=== PATIENT | female | born 1965 | race Caucasian/White ===

== ENCOUNTER → 2017-03-11 | Outpatient (CLI) | payer BC ==
[~2017-03-11] MED LIST: CATHETER FLUSH 10 ML SYR IV PRN; IOHEXOL 350 MG/ML 150 ML (OMNIPAQUE 350) VIAL IV ONE
--- NOTE | 2017-03-11 16:48 | Diagnostic Imaging Report ---
INDICATION: Bilateral leg pain and swelling. COMPARISON: None. TECHNIQUE: The bilateral lower extremity deep venous system was interrogated from the common femoral vein through the popliteal vein. These images were assessed for grayscale appearance, color and spectral Doppler blood flow, compression, and augmentation. FINDINGS: There is no evidence of intraluminal filling defect. Normal compression and augmentation is noted throughout. Soft tissues are unremarkable. IMPRESSION: 1. No sonographic evidence of deep venous thrombosis in the bilateral lower extremities. Dictated by: Dictated on workstation # [id number]
--- NOTE | 2017-03-11 17:58 | Diagnostic Imaging Report ---
PROCEDURE: CT angiography of the chest with contrast. TECHNIQUE: Multiple contiguous axial images were obtained through the chest after uneventful bolus administration of intravenous contrast. Reconstructed CTA MIP acquisitions were also performed. INDICATION: Shortness of air. CORRELATION STUDY: None. FINDINGS: There are poststernotomy changes along with surgical changes at the level of the aortic and mitral valve. Heart size enlarged. Thoracic aorta relatively normal in contour. Intraluminal assessment is somewhat limited given phase of contrast bolus. Pulmonary arteries without significant filling defect to suggest pulmonary embolism. Central pulmonary arteries, however, are dilated, can be associated with pulmonary arterial hypertension. Prominent mediastinal and hilar lymph nodes are present. Largest right precarinal lymph node measures 31 x 17 mm. EG junction unremarkable. Lung daniel are clear of infiltrate. Tiny 2 mm nodule in subpleural region of left upper lobe. No significant effusion. Visualized portions of the upper abdomen with diffuse hepatic steatosis. IMPRESSION: 1. No CTA evidence for pulmonary embolism. The pulmonary arteries are dilated centrally, can be seen with pulmonary arterial hypertension. 2. Postsurgical changes of sternotomy with aortic and mitral valves. Cardiac enlargement. 3. Prominent thoracic lymph nodes. Largest lymph node has a somewhat fatty hilum may be reflective of benign process; however, neoplasm while considered less likely is not excluded. Dictated by: Dictated on workstation # [id number]
--- NOTE | 2017-03-13 07:06 | ECHOCARDIOGRAPHY REPORT ---
DATE OF SERVICE: 03/11/2017 ECHOCARDIOGRAPHY REPORT ORDERING PHYSICIAN: Dr. Kramer. CLINICAL DIAGNOSIS: Shortness of breath, history of mitral valve replacement with [address] Ayhir valve, history of aortic valve replacement with [address] Yahir valve. MEASUREMENTS: 1. Aortic root 2.5. 2. Left atrium 3.1. 3. LV diameter diastolic 5.8. 4. IVS thickness, diastolic 1.2. 5. LVPW thickness, diastolic 1.3. DESCRIPTION: This is a technically difficult study on account of patient's body habitus. There appears to be considerable mitral annular calcification and aortic valve sclerosis. By history, there are two mechanical prosthetic valves, one in the mechanical position other in the aortic position. Both stated to be St. Yahir valve. There is no significant pericardial effusion seen on this study. The valve leaflet structure is not well visualized. Doppler imaging shows mild pulmonic regurgitation and mild to moderate tricuspid regurgitation. There does not appear to be any significant mitral regurgitation or evidence of mitral stenosis. Peak pressure seen across the aortic valve seen on this study is approximately 10 mmHg. Good subcostal views are not available. The study is not adequate for evaluation for intracardiac shunt. Inferior vena cava is not well visualized. Pulmonary artery systolic pressure is estimated at approximately 50 mmHg. CONCLUSIONS: 1. Technically difficult study. 2. Well preserved global left systolic function with ejection fraction approximately 55%. 3. Mild concentric left ventricle hypertrophy. 4. Mechanical prosthetic aortic and mitral valves which appear to be functioning adequately. 5. Pulmonary hypertension with an estimated pulmonary artery systolic pressure of approximately 50 mmHg. 6. Mild pulmonic regurgitation. 7. Mild to moderate tricuspid regurgitation. Job ID: [id number] DocumentID: [id number] Dictated Date: 03/12/2017 14:34:28 Internal Controls Analyst Date: 03/12/2017 15:24:37 Dictated By: MARYLU KRAMER MD, MA, FACP, FACC,
== END ==
LOC: RAD 13:50
PROVIDERS: ATTEND Internal Medicine Cardiovascular Disease
DX: I51.7 Cardiomegaly (principal); R59.0 Localized enlarged lymph nodes; I73.9 Peripheral vascular disease, unspecified; M79.89 Other specified soft tissue disorders; Z95.2 Presence of prosthetic heart valve; Z87.891 Personal history of nicotine dependence
CPT/HCPCS: 71275; 93306; 93923; 93970

== ENCOUNTER → 2017-03-25 | Outpatient (CLI) | payer BC ==
[2017-03-25 15:40] LABS: ABG BASE EXCESS 7.4 MMOL/L (-2.5-2.5); ABG HCO3 31 MMOL/L (23-27); ABG OXYGEN SATURATION 99 % (94-100); ABG PCO2 41 MMHG (35-45); ABG PH 7.49 (7.37-7.43); ABG PO2 101 MMHG (79-93); ABG TCO2 32.4 MMOL/L (21.0-31.0)
[2017-03-25 15:41] LABS: ALLENS TEST POSITIVE; PATIENT TEMP 98.4
[2017-03-25 16:11] LABS: ALBUMIN 4.1 G/DL (3.2-4.5); BILIRUBIN,TOTAL 0.6 MG/DL (0.1-1.0); CALCIUM 9.6 MG/DL (8.5-10.1); CREATININE SERUM 0.98 MG/DL (0.60-1.30); POTASSIUM 3.2 MMOL/L (3.6-5.0); TOTAL PROTEIN 8.1 G/DL (6.4-8.2)
== END ==
LOC: RT 15:15
PROVIDERS: ATTEND Nurse Practitioner Family
DX: R06.02 Shortness of breath (principal)
CPT/HCPCS: 36415; 80053; 82805

== ENCOUNTER 2017-04-22 19:55 | Outpatient (CLI) | payer BC | END 2017-04-23 06:05 | disposition home or self-care (01) | LOC: SLEEP 19:55 | PROVIDERS: ATTEND Nurse Practitioner Family | DX: G47.33 Obstructive sleep apnea (adult) (pediatric) (principal); J44.9 Chronic obstructive pulmonary disease, unspecified; Z95.2 Presence of prosthetic heart valve; Z87.891 Personal history of nicotine dependence | CPT/HCPCS: 95811 ==

== ENCOUNTER → 2018-01-01 | Outpatient (CLI) | payer BC | LOC: CARD 09:27 | PROVIDERS: ATTEND Nurse Practitioner Family | DX: I27.21 Secondary pulmonary arterial hypertension (principal); I34.0 Nonrheumatic mitral (valve) insufficiency | CPT/HCPCS: 93306 ==